=== PATIENT | male | born 1950 | race Caucasian/White ===

== ENCOUNTER 2016-09-29 11:20 | Outpatient (CLI) | payer OTHER ==
[2013-10-26 05:55] VITALS: BP 149/102
== END 2016-09-29 11:21 ==
LOC: CARD 11:20
PROVIDERS: ATTEND Internal Medicine Cardiovascular Disease
DX: I25.10 Atherosclerotic heart disease of native coronary artery without angina pectoris (principal)
CPT/HCPCS: 99213

== ENCOUNTER 2016-10-27 09:38 | Outpatient (CLI) | payer OTHER ==
[2013-10-26 05:55] VITALS: BP 149/102
[2016-10-27 10:27] LABS: eGFR (African) > 60; eGFR (Non-African) > 60
== END 2016-10-27 09:40 ==
LOC: LAB 09:38
PROVIDERS: ATTEND Family Medicine
DX: E11.9 Type 2 diabetes mellitus without complications (principal); I10 Essential (primary) hypertension; N40.1 Benign prostatic hyperplasia with lower urinary tract symptoms
CPT/HCPCS: 36415; 80053; 80061; 82043; 83036; 84153

== ENCOUNTER 2017-09-21 18:30 | Emergency (ER) | payer OTHER ==
--- NOTE | 2017-09-21 18:43 | ED Physician Documentation ---
General Adult - HISTORIAN Historian: patient, spouse - HPI Stated Complaint: cough fever Chief Complaint: Fever Onset: days ago (6) Timing: still present Severity: mild Further Comments: yes (He states 6 days ago he started with fever (did not measure) chills, fatigue and cough. He states is continues to feel fatigue and cough (productive) and he is vomiting from the phglem. He is taking OTC meds which have not helped his symptoms. He is feeling fatigue.) Last known Well Code/Unknown Code: Unknown - ROS CONST: fever, sweating, recent illness EYES/ENT: nasal drainage. denies: problems with vision CVS/RESP: cough. denies: chest pain, shortness of breath GI/: vomiting. denies: nausea MS/SKIN/LYMPH: denies: rash NEURO/PSYCH: headache. denies: dizziness - PAST HX Past History: hypertension, other (hyperlidemia, reflux ) Surgeries/Procedures: other Immunizations: referred to PCP Allergies/Adverse Reactions: Allergies Allergy/AdvReac Type Severity Reaction Status Date / Time Penicillins Allergy Verified 09/21/17 18:53 Home Medications: Ambulatory Orders Medication Instructions Recorded Aspirin [Aspirin EC] 81 mg PO DAILY #30 u2 11/01/12 - SOCIAL HX Smoking History: cigarettes Alcohol Use: rarely Drug Use: none - FAMILY HX Family History: No - VITAL SIGNS Vital Signs: Vital Signs Temp Pulse Resp BP Pulse Ox 149/102 10/26/13 05:53 - REVIEWED ASSESSMENTS Nursing Assessment Reviewed: Yes Vitals Reviewed: Yes ED Results Lab/Radiology - Radiology Radiology Impressions: PA and lateral chest CLINICAL HISTORY: Cough, fever for 1 week. FINDINGS: Examination of the chest in PA and lateral views demonstrates the lungs to be hyperinflated but clear. The cardiovascular and mediastinal silhouettes are within normal limits. Bony thorax is intact. IMPRESSION: Hyperinflation. No active disease. Electronically signed on Sep 21, 2017 7:26:10 PM EEG TECHNOLOGIST by: Cooper Galvan General Adult Physical Exam - PHYSICAL EXAM GENERAL APPEARANCE: mild distress EENT: pharyngeal erythema, TM erythema RESPIRATORY: no resp distress, breath sounds normal CVS: reg rate & rhythm, heart sounds normal, equal pulses, no murmur ABDOMEN: soft BACK: normal inspection EXTREMITIES: non-tender, normal range of motion, no evidence of injury, no edema NEURO: oriented X3, CN's nml as tested, motor nml, sensation nml, mood/affect nml Discharge Clincal Impression: Sinusitis Qualifiers: Sinusitis location: frontal Chronicity: acute Recurrence: not specified as recurrent Qualified Code(s): J01.10 - Acute frontal sinusitis, unspecified Referrals: Maxwell Shaw MD [Primary Care Provider] - 2 Days Comments: 1. Augmentin 875/125 mg take 1 by mouth BID x 10 days 2. Tessalon Pearls 100 mg take 1 by mouth every 8 hours as needed for cough Proair 2 puffs by mouth every 4-6 hours as needed for cough 3. increase fluids 4. Rest 5. Return to ER for any shortness of breath, fever or other concerns 6. See PCP in 2-4 days Condition: Stable Disposition: 01 HOME, SELF-CARE Decision to Admit: NO Date of Decison to Admit: 09/21/17 Decision Time: 20:57
[2017-09-21] MEDS: IPRATROPIUM/ALBUTEROL SULFATE 3 ML AMPUL.NEB NEB ONE (19:00)
[2017-09-21 19:39] LABS: BASOPHILS % 0.8 (0.0-1.5); EOSINOPHILS % 0.6 % (0.0-6.8); MEAN CORPUSCULAR HEMOGLOBIN 34.1 pg (28.0-34.0); MEAN CORPUSCULAR VOLUME 100.9 fl (80.0-100.0); NEUTROPHILS # 5.4 # k/uL (1.4-7.7)
[2017-09-21 19:48] LABS: eGFR (African) > 60; eGFR (Non-African) > 60
[2017-09-21] MEDS: 0.9 % SODIUM CHLORIDE 1,000 ML IV ONE (20:00)
[2017-09-21] MEDS: BENZONATATE 100 MG CAPSULE PO ONE (20:33)
[2017-09-21] MEDS: AZITHROMYCIN 250 MG TABLET PO ONE (20:33)
[2017-09-21 21:03] VITALS: BP 178/76
--- NOTE | 2017-09-21 22:40 | Diagnostic Imaging Report ---
OSMAR JOYNER [facility] [address] [facility].[address] [id number] Report Submission Date: Sep 21, 2017 7:26:10 PM THERAPEUTIC PROGRAM WORKER Patient Study Name: VALE VENEGAS Date: Sep 21, 2017 7:11:29 PM THERAPEUTIC PROGRAM WORKER MRN: [id number] Modality Type: CR Gender: M Description: CHEST : 54 Institution: [facility] Physician: OSMAR JOYNER PA and lateral chest CLINICAL HISTORY: Cough, fever for 1 week. FINDINGS: Examination of the chest in PA and lateral views demonstrates the lungs to be hyperinflated but clear. The cardiovascular and mediastinal silhouettes are within normal limits. Bony thorax is intact. IMPRESSION: Hyperinflation. No active disease. Electronically signed on Sep 21, 2017 7:26:10 PM THERAPEUTIC PROGRAM WORKER by: Cooper OQUENDO
== END 2017-09-21 21:00 | disposition home or self-care (01) ==
LOC: ED 18:30
DX: J01.10 Acute frontal sinusitis, unspecified (principal); R05 Cough; R50.9 Fever, unspecified
CPT/HCPCS: 71020; 80053; 83880; 85025; 87040; A9270; J7030; 71046; 94640; 96365; 99283; S1016

== ENCOUNTER 2017-10-05 11:48 | Outpatient (CLI) | payer OTHER | END 2017-10-05 11:50 | LOC: CARD 11:48 | PROVIDERS: ATTEND Internal Medicine Cardiovascular Disease | DX: I25.10 Atherosclerotic heart disease of native coronary artery without angina pectoris (principal); I10 Essential (primary) hypertension; E78.5 Hyperlipidemia, unspecified; Z72.0 Tobacco use | CPT/HCPCS: G0463 ==

== ENCOUNTER 2018-10-03 09:43 | Outpatient (CLI) | payer OTHER ==
[2018-10-03 11:09] LABS: eGFR (Non-African) > 60
== END 2018-10-03 09:44 ==
LOC: LAB 09:43
PROVIDERS: ATTEND Family Medicine
DX: I25.10 Atherosclerotic heart disease of native coronary artery without angina pectoris (principal); I10 Essential (primary) hypertension; R73.03 Prediabetes
CPT/HCPCS: 36415; 80053; 80061; 83036

== ENCOUNTER 2019-06-07 09:16 | Outpatient (CLI) | payer OTHER ==
[2019-06-07 10:34] LABS: A1C 4.9 % (<5.7); eGFR (Non-African) > 60
[2019-06-07 10:35] LABS: HDL 91 mg/dL (>40)
== END 2019-06-07 09:21 ==
LOC: LAB 09:16
PROVIDERS: ATTEND Family Medicine
DX: I10 Essential (primary) hypertension (principal); I25.10 Atherosclerotic heart disease of native coronary artery without angina pectoris; G60.9 Hereditary and idiopathic neuropathy, unspecified; R73.03 Prediabetes
CPT/HCPCS: 36415; 80053; 80061; 83036; 84439; 84443; 84481